=== PATIENT | male | born 1975 | race Caucasian/White ===

== ENCOUNTER 2017-07-01 08:10 | Emergency (ER) | payer SELFPAY ==
[2017-07-01 08:14] VITALS: BMI 26.6
[2017-07-01] MEDS ORDERED: TORADOL 60 MG VIAL IM ONE (08:41)
[2017-07-01] MEDS ORDERED: NORFLEX INJ IM PRN (08:41)
[2017-07-01] MEDS ORDERED: NORFLEX INJ ONE (08:48)
[2017-07-01] MEDS ORDERED: TORADOL 60 MG VIAL ONE (08:48)
[2017-07-01 08:59] LABS: BASOPHILS % (AUTO) 0.7 % (0.2-1.0); EOSINOPHILS # (AUTO) 0.5 x10^3/uL (0.0-0.2); EOSINOPHILS % (AUTO) 9.2 % (0.9-2.9); HEMOGLOBIN 17.1 g/dL (13.5-18.0); LYMPHOCYTES # (AUTO) 1.8 X10^3/uL (1.3-2.9); LYMPHOCYTES % (AUTO) 31.3 % (21.0-51.0); MEAN CORPUSCULAR HEMOGLOBIN 32.6 pg (27.0-34.0); MEAN CORPUSCULAR HGB CONC 34.9 g/dL (33.0-35.0); MEAN CORPUSCULAR VOLUME 93.4 fL (80.0-100.0); MEAN PLATELET VOLUME 7.6 fL (7.4-11.0); MONOCYTES # (AUTO) 0.6 x10^3/uL (0.3-0.8); MONOCYTES % (AUTO) 9.8 % (0.0-13.0); NEUTROPHILS # (AUTO) 2.8 x10^3/uL (2.2-4.8); PLATELET COUNT 279 X10^3/uL (150.0-450.0); RED BLOOD COUNT 5.24 X10^6/uL (4.7-6.0); RED CELL DISTRIBUTION WIDTH 12.8 % (11.6-16.5); WHITE BLOOD COUNT 5.7 X10^3/uL (3.6-10.0)
[2017-07-01 09:20] LABS: CKMB % 1.5 % (<4); CREATINE KINASE 67 Units/L (39-308); CREATINE KINASE MB < 1.0 ng/mL (0-4.0); TROPONIN I < 0.02 ng/mL (0-1.5)
--- NOTE | 2017-07-01 09:22 | DR.GENAD ---
HPI - PCP Primary Care Physician: none - HPI Comment HPI Comment: CHEST COLD FOR FEW DAYS. HIT LEFT CHEST WHILE LAYING CABLE 2 WEEKS AGO. NO IMMEDIATE SEVERE PAIN. PROGRESSIVE PAIN SINCE. TODAY, WHEEZING AND PRECORDIAL PAIN IN LEFT CHEST IS WORSE. NO FEVER. - Complaint/Symptoms Chief Complaint Doctors Comments: PRECORDIAL CHEST PAIN, COUGH, CONGESTION AND WHEEZING. Chief Complaint:: "hurt my chest picking something up two weeks ago and it has got worse since then" - Nurses notes reviewed Nurses Notes Review: Yes - Source History Provided: Patient - Mode of Arrival Mode of Arrival: Ambulatory - Timing Onset of Chief Complaint: 06/17/17 Came on: Suddenly - Duration Duration: Constant Duration: Days - Severity Severity: Moderate PMH - PMH Past Medical History: No Past Surgical History: No - Family History History of Family Medical Conditions: No - Social History Does patient currently use any type of tobacco product: Yes Have you used tobacco products in the last 12 months: Yes Type of Tobacco Use: Cigarettes How many years tobacco product used: 6 Does any household member use tobacco: No Alcohol Use: None Do you use any recreational Drugs:: No Lives With: Family Lives Where: Home - infectious screening In the last 2 months have you had wt loss of >10#?: NO Have you had fever, night sweats or hemotysis?: No Have you traveled outside the country in the last 6 months?: No Isolation: Standard ROS - Review of Systems Constitutional: Weakness, Fatigue. negative: Chills, Fever Eyes: negative: Eye Pain, Discharge ENTM: Nose Discharge, Nose Congestion, Throat Pain. negative: Ear Pain Respiratoy: Productive Cough, Short of Breath, Wheezing Cardiovascular: Chest Pain Gastrointestinal/Abdominal: No Symptoms Reported Genitourinary: No Symptoms Reported Neurological: Headache, Weakness, Dizziness Musculoskeletal: Muscle Pain Integumentary: No Symptoms Reported Hematologic/Lymphatic: No Symptoms Reported Endocrine: No Symptoms Reported All Other Systems: Reviewed and Negative PE - Vital Signs Vitals: Temperature 98 F Pulse Rate [Left Brachial] 70 Pulse Rate 87 Respiratory Rate 18 Blood Pressure [Left Arm] 138/84 Blood Pressure 160/103 O2 Sat by Pulse Oximetry 100 - General Limitations: No Limitations General Appearance: Alert - Head Head Exam: Normal Inspection - Eyes Eye exam: Normal Appearance - ENT ENT Exam: Normal External Ear Exam External Ear Exam: Normal External Inspection TM/Canal Exam: Bilateral Normal Nose Exam: Normal Nose Exam Mouth Exam: Normal Inspection Throat Exam: Normal Inspection - Neck Neck Exam: Trachea Midline - Chest Chest Inspection: Symmetric Chest Wall Rise, Tenderness (LEFT CHEST WALL) - Respiratory Respiratory Exam: Normal Lung Sounds Bilat, Chest Wall Tenderness Respiratory Exam: Bilateral Clear to Auscultation - Cardiovascular Cardiovascular Exam: Regular Rate, Normal Rhythm, Normal Heart Sounds - Abdominal Exam Abdominal Exam: Normal Bowel Sounds, Soft. negative: Tenderness - Extremities Extremities Exam: Normal Inspection - Back Back Exam: Normal Inspection - Neurologic Neurological Exam: Alert, Oriented X3 - Psychiatric Psychiatric Exam: Normal Affect, Normal Mood - Skin Skin Exam: Normal Color MDM - Differential Diagnosis Differential Diagnosis: CHEST PAIN, BRONCHITIS, COPD, PNEUMONIA. Course - Treatment Treatment: SEE ORDERS. - Education/Counseling Education/Counseling: Patient, Education Educated On: Treatment, Diagnosis, Needs for Follow Up ROR - Labs Reviewed Laboratory Results Reviewed?: Yes Result Diagrams: 07/01/17 08:50 07/01/17 08:50 Laboratory: WBC 5.7 X10^3/uL (3.6-10.0) 07/01/17 08:50 RBC 5.24 X10^6/uL (4.7-6.0) 07/01/17 08:50 Hgb 17.1 g/dL (13.5-18.0) 07/01/17 08:50 Hct 49.0 % (42.0-54.0) 07/01/17 08:50 MCV 93.4 fL (80.0-100.0) 07/01/17 08:50 MCH 32.6 pg (27.0-34.0) 07/01/17 08:50 MCHC 34.9 g/dL (33.0-35.0) 07/01/17 08:50 RDW 12.8 % (11.6-16.5) 07/01/17 08:50 Plt Count 279 X10^3/uL (150.0-450.0) 07/01/17 08:50 Plt Count Comment Adequate (ADEQUATE) 07/01/17 08:50 MPV 7.6 fL (7.4-11.0) 07/01/17 08:50 Neut % 49.0 % (42.0-75.0) 07/01/17 08:50 Lymph % 31.3 % (21.0-51.0) 07/01/17 08:50 [place] % 9.8 % (0.0-13.0) 07/01/17 08:50 Eos % 9.2 % (0.9-2.9) H 07/01/17 08:50 Baso % 0.7 % (0.2-1.0) 07/01/17 08:50 Neut # 2.8 x10^3/uL (2.2-4.8) 07/01/17 08:50 Lymph # 1.8 X10^3/uL (1.3-2.9) 07/01/17 08:50 [place] # 0.6 x10^3/uL (0.3-0.8) 07/01/17 08:50 Eos # 0.5 x10^3/uL (0.0-0.2) H 07/01/17 08:50 Baso # 0.0 X10^3/uL (0.0-0.1) 07/01/17 08:50 Absolute Nucleated RBC 0.1 /100WBC 07/01/17 08:50 Total Counted 100 07/01/17 08:50 Neutrophils % (Manual) 53 % (39-76) 07/01/17 08:50 Band Neutrophils % 3 % (0-10) 07/01/17 08:50 Lymphocytes % (Manual) 32 % (13-43) 07/01/17 08:50 Monocytes % (Manual) 8 % (4-9) 07/01/17 08:50 Eosinophils % (Manual) 4 % (0-6) 07/01/17 08:50 Plt Morphology Comment Normal (NORMAL) 07/01/17 08:50 RBC Morphology Normal (NORMAL) 07/01/17 08:50 Sodium 138 mmol/L (136-145) 07/01/17 08:50 Corrected Sodium 138 mmol/L (136-145) 07/01/17 08:50 Potassium 4.2 mmol/L (3.5-5.1) 07/01/17 08:50 Chloride 105 mmol/L (98-107) 07/01/17 08:50 Carbon Dioxide 24.0 mmol/L (21-32) 07/01/17 08:50 BUN 16 mg/dL (7-18) 07/01/17 08:50 Creatinine 1.33 mg/dL (0.70-1.30) H 07/01/17 08:50 Est GFR (MDRD) Af Amer > 60 (>60) 07/01/17 08:50 Est GFR (MDRD) Non-Af > 60 (>60) 07/01/17 08:50 Glucose 114 mg/dL (65-99) H 07/01/17 08:50 Calcium 8.9 mg/dL (8.5-10.1) 07/01/17 08:50 Corrected Calcium TNP 07/01/17 08:50 Total Bilirubin 0.40 mg/dL (0.2-1.0) 07/01/17 08:50 AST 21 Units/L (15-37) 07/01/17 08:50 ALT 20 Units/L (12-78) 07/01/17 08:50 Alkaline Phosphatase 86 Units/L (46-116) 07/01/17 08:50 Creatine Kinase 67 Units/L (39-308) 07/01/17 08:50 CK-MB (CK-2) < 1.0 ng/mL (0-4.0) 07/01/17 08:50 CK/CKMB % Calc 1.5 % (<4) 07/01/17 08:50 Troponin I < 0.02 ng/mL (0-1.5) 07/01/17 08:50 Total Protein 7.5 g/dL (6.4-8.2) 07/01/17 08:50 Albumin 3.7 g/dL (3.4-5.0) 07/01/17 08:50 Globulin 3.8 g/dL (2.5-4.5) 07/01/17 08:50 Albumin/Globulin Ratio 1.0 Ratio (1.1-2.1) L 07/01/17 08:50 - XRAY XRAY Findings: REPORT DISCUSS WITH PATIENT. - EKG Rhythm: NSR (EKG NOTED.) - Diagnosis Discharge Problem: Bronchitis Chest pain Qualifiers: Chest pain type: precordial pain Qualified Code(s): R07.2 - Precordial pain Chest wall contusion Qualifiers: Encounter type: initial encounter Laterality: left Qualified Code(s): S20.212A - Contusion of left front wall of thorax, initial encounter - Discharge Plan Disposition: 01 HOME, SELF-CARE Condition: Stable Prescriptions: Amoxicillin [Amoxil 875 mg] 875 mg PO Q12H #20 tab Cyclobenzaprine HCl [FLEXERIL 10 MG *] 10 mg PO TID #20 tab Ibuprofen [MOTRIN TAB 600 MG *] 600 mg PO TID PRN #20 tab PRN Reason: Pain/Inflammation Methylprednisolone Dosepak 4Mg [MEDROL DOSEPAK (4 mg tab x 21)] 1 dolly PO ONCE # 1 dolly - Follow ups/Referrals Follow ups/Referrals: [facility],None [Primary Care Provider] - 3 days - Instructions Instructions: Pulmonary Contusion, [id number], Acute Bronchitis, [id number] Additional Instructions: RETURN TO ED IF WORSE. BLOOD PRESSURE CHECK DAILY AND TAKE TO THE DR. YOU FOLLOW UP WITH.
[2017-07-01 09:39] LABS: BAND NEUTROPHILS % 3 % (0-10)
[2017-07-01 09:40] LABS: PLATELET MORPHOLOGY COMMENT NORMAL (NORMAL)
--- NOTE | 2017-07-01 09:48 | RAD ---
HISTORY: Chest pain Study: Single-view of the chest Comparison: None Findings: The trachea is midline. The cardiac silhouette is at the upper limits of normal. The lungs are cindy r without focal infiltrate or effusion. IMPRESSION: 1. No acute cardiopulmonary disease. Reported By:
[2017-07-01] MEDS ORDERED: MORPHINE SULFATE INJ 4 MG IM ONE (10:10)
[2017-07-01] MEDS ORDERED: MORPHINE SULFATE INJ 4 MG ONE (10:12)
[2017-07-01 10:15] LABS: ALANINE AMINOTRANSFERASE 20 Units/L (12-78); ALBUMIN 3.7 g/dL (3.4-5.0); ALKALINE PHOSPHATASE 86 Units/L (46-116); ASPARTATE AMINO TRANSFERASE 21 Units/L (15-37); BLOOD UREA NITROGEN 16 mg/dL (7-18); CALCIUM 8.9 mg/dL (8.5-10.1); CHLORIDE 105 mmol/L (98-107); COR NA(FOR HYPERGLY) 138 mmol/L (136-145); CREATININE 1.33 mg/dL (0.70-1.30); SODIUM 138 mmol/L (136-145); TOTAL PROTEIN 7.5 g/dL (6.4-8.2); eGFR BLACK RACES > 60 (>60); eGFR NON BLACK RACES > 60 (>60)
[2017-07-01 10:33] VITALS: BP 138/84
== END 2017-07-01 10:32 | disposition home or self-care (01) ==
LOC: ER 08:40
DX: S20.212A Contusion of left front wall of thorax, initial encounter (principal); J40 Bronchitis, not specified as acute or chronic; R07.2 Precordial pain; Z72.0 Tobacco use; X58.XXXA Exposure to other specified factors, initial encounter; Y92.9 Unspecified place or not applicable
CPT/HCPCS: 36415; 71010; 80053; 82550; 82553; 84484; 85025; 93005; 93010; 96372; 99282; 99283; J1885; J2270; J2360